=== PATIENT | female | born 1975 ===

== ENCOUNTER → 2018-09-07 14:23 | Day surgery (SDC) | payer OTHER ==
[~2018-09-07 14:23] MED LIST: Bupivacaine 0.5% W/EPI SDV* 30 ML VIAL ONE; Lidocaine 1% INJ* 10 MG/ML 30 ML SDV ONE; Lidocaine 1% w EPI 1:200,000* 30 ML VIAL ONE
[2018-09-07 14:48] VITALS: BP 116/61
--- NOTE | 2018-09-07 15:32 | BRIEFOPN ---
Brief Operative Note - Surgery Procedures: Procedures Pre-OP Diagnoses: LLE mass Post-op Diagnosis: lipoma Procedure: excisional biopsy of L popliteal fossa mass Surgeon: Angy Asst: none Anethesia: local EBL: minimal IVF: none Specimen: lipoma Drains: none
--- NOTE | 2018-09-07 20:49 | OP ---
CC: Primary care doctor, Celina Fountain MD * DATE OF OPERATION: 09/07/18 - SDS DATE OF : 77 SURGEON: Dev Travis MD WALL WORKER: None. ANESTHESIA: Local anesthesia. PRE-OP DIAGNOSIS: Left popliteal fossa mass. POST-OP DIAGNOSIS: Lipoma. OPERATIVE PROCEDURE: Excisional biopsy of left popliteal fossa mass. SPECIMEN: Left lower extremity mass consistent with lipoma. DRAINS: None. DESCRIPTION OF PROCEDURE: The patient was identified in the preoperative area and marked, brought to the operating room, placed on the operating table in the prone position. The left popliteal fossa was prepped and draped sterilely and a time-out was performed. After injection of lidocaine, an up and down incision was made over the lesion in the popliteal fossa. This was deepened down to the lipoma which was excised in its entirety and passed off as specimen. The wound was irrigated and reapproximated with 3-0 Prolene sutures in a mattress fashion. Sterile dressing was applied. The patient tolerated the procedure well. [id number] #: [id number] MTDD
== END | disposition home or self-care (01) ==
LOC: OR 14:23
PROVIDERS: ATTEND Surgery
DX: D17.24 Benign lipomatous neoplasm of skin and subcutaneous tissue of left leg (principal)
CPT/HCPCS: 88304; J2001